=== PATIENT | female | born 1990 | race Caucasian/White ===

== ENCOUNTER 2022-02-28 16:42 | Emergency (ER) | payer OTHER ==
[~2022-02-28] VITALS: Ht 160 cm; Wt 54.4 kg
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
--- NOTE | 2022-02-28 18:30 | NUR ---
Millie mcneal in [facility] - 02/28/22 at 1852 by HERMES CORN DETASSELER MACHINE OPERATOR AT BEDSIDE FOR BLOOD DRAW
[2022-02-28] MEDS ORDERED: CARI350T PO (19:33)
--- NOTE | 2022-02-28 19:57 | NUR ---
Patient discharged to home in stable condition. Written and verbal after care instructions given. Patient verbalizes understanding of instruction.
[2022-02-28 19:58] VITALS: BP 112/68
== END 2022-02-28 19:58 | disposition home or self-care (01) ==
LOC: ER 16:47
DX: S13.4XXA Sprain of ligaments of cervical spine, initial encounter (principal); S33.5XXA Sprain of ligaments of lumbar spine, initial encounter; S00.03XA Contusion of scalp, initial encounter; Z88.0 Allergy status to penicillin; Z60.2 Problems related to living alone; Z79.899 Other long term (current) drug therapy; V49.49XA Driver injured in collision with other motor vehicles in traffic accident, initial encounter; Y93.89 Activity, other specified; Y92.413 State road as the place of occurrence of the external cause; Y99.8 Other external cause status
CPT/HCPCS: 70450-TC; 72110-TC; 72125-TC